=== PATIENT | male | born 1960 | race Caucasian/White ===

== ENCOUNTER 2021-01-28 11:53 | Emergency (ER) | payer OTHER ==
[~2021-01-28] VITALS: Ht 190.5 cm; Wt 100.0 kg
--- NOTE | 2021-01-28 13:17 | ED GI ---
General Chief Complaint: Abdominal/GI Problems Stated Complaint: KIDNEY PAIN, LOWER BACK PAIN, SIDE PAIN Source of Information: Patient Exam Limitations: No Limitations History of Present Illness Date Seen by Provider: Jan 28, 2021 Time Seen by Provider: 13:16 Initial Comments To ER with reports of kidney pain secondary to a calcium oxalate stone. He states he has a history of these and believes he is passing another one. Also has not had a bowel movement in over 8 days. Nausea with poor appetite. Timing/Duration: 1-2 Days Severity/Quality: Cramping Radiation: No Radiation Activities at Onset: None Associated Symptoms: Denies Symptoms Allergies and Home Medications Allergies Coded Allergies: No Known Drug Allergies (Unverified , 01/28/21) Home Medications Docusate Sodium 100 Mg Capsule, 100 MG PO DAILY . Prescribed by: SUSHILA KELLER on 01/28/21 1432 Hydrocodone/Acetaminophen 1 Each Tablet, 1 TAB PO Q4H PRN for PAIN-MODERATE (5- 7) . Prescribed by: SUSHILA KELLER on 01/28/21 1432 Ondansetron 4 Mg Tab.rapdis, 4 MG PO Q6H PRN for NAUSEA/VOMITING . Prescribed by: SUSHILA KELLER on 01/28/21 1432 Polyethylene Glycol 3350 17 Gm Powd.pack, 17 GM PO BID . Prescribed by: SUSHILA KELLER on 01/28/21 1432 Tamsulosin HCl 0.4 Mg Cap, 0.4 MG PO DAILY . Prescribed by: SUSHILA KELLER on 01/28/21 1432 Patient Home Medication List Home Medication List Reviewed: Yes Review of Systems Review of Systems Constitutional: see HPI EENTM: No Symptoms Reported Respiratory: No Symptoms Reported Cardiovascular: No Symptoms Reported Gastrointestinal: See HPI Genitourinary: No Symptoms Reported Musculoskeletal: no symptoms reported Skin: no symptoms reported Psychiatric/Neurological: No Symptoms Reported Endocrine: No Symptoms Reported Hematologic/Lymphatic: No Symptoms Reported Physical Exam Vital Signs Vital Signs - First Documented 01/28/21 12:19 Temp 36.4 Pulse 68 Resp 20 B/P (MAP) 124/84 (97) Pulse Ox 100 O2 Delivery Room Air Capillary Refill : Height/Weight/BMI Height: '" Weight: lbs. oz. kg; BMI Method: General Appearance: WD/WN, no apparent distress HEENT: PERRL/EOMI, normal ENT inspection Respiratory: normal breath sounds, no respiratory distress, no accessory muscle use Cardiovascular: regular rate, rhythm, no murmur Gastrointestinal: normal bowel sounds, non tender, soft Extremities: normal range of motion, non-tender Skin: normal color, warm/dry Progress/Results/Core Measures Results/Orders Lab Results Laboratory Tests Test 01/28/21 12:50 Range/Units White Blood Count 10.9 4.3-11.0 10^3/uL Red Blood Count 5.01 4.30-5.52 10^6/uL Hemoglobin 14.9 13.3-17.7 g/dL Hematocrit 43 40-54 % Mean Corpuscular Volume 85 80-99 fL Mean Corpuscular Hemoglobin 30 25-34 pg Mean Corpuscular Hemoglobin Concent 35 32-36 g/dL Red Cell Distribution Width 12.2 10.0-14.5 % Platelet Count 374 130-400 10^3/uL Mean Platelet Volume 11.2 9.0-12.2 fL Immature Granulocyte % (Auto) 1 % Neutrophils (%) (Auto) 59 42-75 % Lymphocytes (%) (Auto) 27 12-44 % Monocytes (%) (Auto) 10 0-12 % Eosinophils (%) (Auto) 3 0-10 % Basophils (%) (Auto) 1 0-10 % Neutrophils # (Auto) 6.4 1.8-7.8 10^3/uL Lymphocytes # (Auto) 3.0 1.0-4.0 10^3/uL Monocytes # (Auto) 1.1 H 0.0-1.0 10^3/uL Eosinophils # (Auto) 0.3 0.0-0.3 10^3/uL Basophils # (Auto) 0.1 0.0-0.1 10^3/uL Immature Granulocyte # (Auto) 0.1 0.0-0.1 10^3/uL Sodium Level 138 135-145 MMOL/L Potassium Level 4.6 3.6-5.0 MMOL/L Chloride Level 100 98-107 MMOL/L Carbon Dioxide Level 22 21-32 MMOL/L Anion Gap 16 H 5-14 MMOL/L Blood Urea Nitrogen 18 7-18 MG/DL Creatinine 1.69 H 0.60-1.30 MG/DL Estimat Glomerular Filtration Rate 42 BUN/Creatinine Ratio 11 Glucose Level 106 H 70-105 MG/DL Calcium Level 9.5 8.5-10.1 MG/DL Corrected Calcium 9.3 8.5-10.1 MG/DL Total Bilirubin 1.8 H 0.1-1.0 MG/DL Aspartate Amino Transf (AST/SGOT) 14 5-34 U/L Alanine Aminotransferase (ALT/SGPT) 16 0-55 U/L Alkaline Phosphatase 69 40-136 U/L Total Protein 7.9 6.4-8.2 GM/DL Albumin 4.3 3.2-4.5 GM/DL My Orders Orders - SUSHILA KELLER APRN Cbc With Automated Diff (01/28/21 13:01) Comprehensive Metabolic Panel (01/28/21 13:01) Ua Culture If Indicated (01/28/21 13:01) Ed Iv/Invasive Line Start (01/28/21 13:01) Ct Abdomen/Pelvis Wo (01/28/21 13:01) Abo Rh Type (01/28/21 13:13) Lactated Ringers (Lr 1000 Ml Iv Solution (01/28/21 14:15) Abdomen/Kub 1view (01/28/21 14:27) Vital Signs/I&O 01/28/21 12:19 Temp 36.4 Pulse 68 Resp 20 B/P (MAP) 124/84 (97) Pulse Ox 100 O2 Delivery Room Air Departure Communication (Admissions) NAME: [facility] REC#: [id number] PT STATUS: REG ER : 1960 PHYSICIAN: SUSHILA KELLER APRN ADMIT DATE: 01/28/21/ER Draft Date of Exam:01/28/21 CT ABDOMEN/PELVIS WO PROCEDURE: CT abdomen and pelvis without contrast. TECHNIQUE: Multiple contiguous axial images were obtained through the abdomen and pelvis without the use of intravenous contrast. Auto Exposure Controls were utilized during the CT exam to meet ALARA standards for radiation dose reduction. INDICATION: Right flank pain with hematuria Linear densities in the visualized lung bases may reflect atelectasis or scarring. Unenhanced images of the liver and spleen reveal no focal abnormality. There is moderate density within the gallbladder lumen which could be due to sludge or stones. No biliary ductal dilatation is identified. There is no evidence of pancreatic or adrenal gland abnormality. There are bilateral renal stones with the largest in the lower pole of the left kidney measuring 0.6 cm in diameter. In addition, there is mild right hydronephrosis and right hydroureter to the level of an approximately 0.5 cm calculus in the distal right ureter. There is no evidence of appendiceal inflammation. No organized fluid collection is identified and there is no evidence of pathologically enlarged adenopathy. No bladder stone is seen. Calcifications are noted in the prostate gland. There is localized L2-L3 degenerative disc disease. IMPRESSION: Bilateral nephrolithiasis with at least partially obstructing 0.5 cm distal right ureteric stone resulting in mild right hydronephrosis and hydroureter. Dictated on workstation # [id number] Dict: 01/28/21 1336 Trans: 01/28/21 1343 [facility] [id number] Interpreted by: SEBASTIAN CELIS MD Electronically signed by: Impression Primary Impression: Right ureteral stone Disposition: 01 HOME, SELF-CARE Condition: Stable Departure-Patient Inst. Decision time for Depature: 13:48 Referrals: RYNE PADILLA MD Patient Instructions: Kidney Stones (DC) Add. Discharge Instructions: Try to avoid NSAIDs like ibuprofen or naproxen Aleve because of their effect on kidney function. Yes nausea medication as needed. Laxative as directed. Pain medication as directed. Follow-up with urology. Your blood type is B+ All discharge instructions reviewed with patient and/or family. Voiced understanding. Scripts Cefuroxime Axetil (Cefuroxime) 250 Mg Tablet 250 MG PO BID, #10 TAB Prov: SUSHILA KELLER APRN 01/28/21 Polyethylene Glycol 3350 (Miralax) 17 Gm Powd.pack 17 GM PO BID, #20 EACH . Prov: SUSHILA KELLER APRN 01/28/21 Docusate Sodium (Colace) 100 Mg Capsule 100 MG PO DAILY, #20 CAP . Prov: SUSHILA KELLER APRN 01/28/21 Hydrocodone/Acetaminophen (Hydrocodone-Acetamin 5-325 mg) 1 Each Tablet 1 TAB PO Q4H PRN for PAIN-MODERATE (5-7), #14 TAB . Prov: SUSHILA KELLER APRN 01/28/21 Tamsulosin HCl (Flomax) 0.4 Mg Cap 0.4 MG PO DAILY, #14 CAP . Prov: SUSHILA KELLER APRN 01/28/21 Ondansetron (Ondansetron Odt) 4 Mg Tab.rapdis 4 MG PO Q6H PRN for NAUSEA/VOMITING, #8 TAB 0 Refills . Prov: SUSHILA KELLER APRN 01/28/21 SUSHILA KELLER APRN Jan 28, 2021 13:17
--- NOTE | 2021-01-28 13:44 | Diagnostic Imaging Report ---
PROCEDURE: CT abdomen and pelvis without contrast. TECHNIQUE: Multiple contiguous axial images were obtained through the abdomen and pelvis without the use of intravenous contrast. Auto Exposure Controls were utilized during the CT exam to meet ALARA standards for radiation dose reduction. INDICATION: Right flank pain with hematuria Linear densities in the visualized lung bases may reflect atelectasis or scarring. Unenhanced images of the liver and spleen reveal no focal abnormality. There is moderate density within the gallbladder lumen which could be due to sludge or stones. No biliary ductal dilatation is identified. There is no evidence of pancreatic or adrenal gland abnormality. There are bilateral renal stones with the largest in the lower pole of the left kidney measuring 0.6 cm in diameter. In addition, there is mild right hydronephrosis and right hydroureter to the level of an approximately 0.5 cm calculus in the distal right ureter. There is no evidence of appendiceal inflammation. No organized fluid collection is identified and there is no evidence of pathologically enlarged adenopathy. No bladder stone is seen. Calcifications are noted in the prostate gland. There is localized L2-L3 degenerative disc disease. IMPRESSION: Bilateral nephrolithiasis with at least partially obstructing 0.5 cm distal right ureteric stone resulting in mild right hydronephrosis and hydroureter. Dictated by: Dictated on workstation # [id number]
[2021-01-28 13:50] LABS: BASOPHILS # (AUTO) 0.1 10^3/uL (0.0-0.1); BASOPHILS % (AUTO) 1 % (0-10); EOSINOPHILS # (AUTO) 0.3 10^3/uL (0.0-0.3); EOSINOPHILS % (AUTO) 3 % (0-10); HEMATOCRIT 43 % (40-54); HEMOGLOBIN 14.9 g/dL (13.3-17.7); LYMPHOCYTES % (AUTO) 27 % (12-44); MEAN CORPUSCULAR HEMOGLOBIN 30 pg (25-34); MEAN CORPUSCULAR HGB CONC 35 g/dL (32-36); MEAN CORPUSCULAR VOLUME 85 fL (80-99); MEAN PLATELET VOLUME 11.2 fL (9.0-12.2); MONOCYTES # (AUTO) 1.1 10^3/uL (0.0-1.0); MONOCYTES % (AUTO) 10 % (0-12); NEUTROPHILS # (AUTO) 6.4 10^3/uL (1.8-7.8); NEUTROPHILS % (AUTO) 59 % (42-75); PLATELET COUNT 374 10^3/uL (130-400); WHITE BLOOD COUNT 10.9 10^3/uL (4.3-11.0)
[2021-01-28 13:53] LABS: ALBUMIN 4.3 GM/DL (3.2-4.5)
[2021-01-28 13:54] LABS: POTASSIUM 4.6 MMOL/L (3.6-5.0)
[2021-01-28 13:55] LABS: CALCIUM 9.5 MG/DL (8.5-10.1)
[2021-01-28 13:56] LABS: TOTAL PROTEIN 7.9 GM/DL (6.4-8.2)
[2021-01-28 13:58] LABS: BILIRUBIN,TOTAL 1.8 MG/DL (0.1-1.0)
[2021-01-28 14:00] LABS: CREATININE SERUM 1.69 MG/DL (0.60-1.30)
[2021-01-28] MEDS ORDERED: LACTATED RINGERS 1,000 ML IV SCH (14:15)
[2021-01-28] MEDS ORDERED: POLY17PO6 PO ×2 (14:26→14:32)
[2021-01-28] MEDS ORDERED: TMSL.4C PO ×2 (14:26→14:32)
[2021-01-28] MEDS ORDERED: DOCU-143 PO ×2 (14:26→14:32)
[2021-01-28] MEDS ORDERED: ACHD5005 PO ×2 (14:26→14:32)
[2021-01-28] MEDS ORDERED: ONDA4TAB11 PO ×2 (14:26→14:32)
--- NOTE | 2021-01-28 14:45 | Diagnostic Imaging Report ---
INDICATION: Abdominal and back pain of two weeks' duration, history of nephrolithiasis as well as constipation. COMPARISON: Exam interpreted in correlation with abdominopelvic CT of the same date. FINDINGS: A right pelvic calcification just above the level of the acetabulum measures 5.3 mm cephalocaudal and is unchanged when its correlated with earlier CT. A large stone at the level of the left renal lower pole of 5 mm is also unchanged. The punctate 1-2 mm right upper pole renal calculi are barely perceptible and partially obscured by overlying colonic stool. This patient does have at least mildly elevated fecal load throughout the length of the colon, but no findings of rectal impaction and no bowel obstruction. IMPRESSION: 1. 5.3 mm distal right ureteral stone, unchanged in position. Large left lower pole renal calculus, unchanged with punctate stones at the level of the right renal upper pole again noted. 2. Kwong-colonic constipation without focal impaction or obstructive phenomena identified. Dictated by: Dictated on workstation # [id number]
[2021-01-28] MEDS ORDERED: CEFU250T80 PO (15:53)
[2021-01-28 15:56] VITALS: BP 118/70
[2021-01-28 16:00] LABS: BILIRUBIN,URINE NEGATIVE (NEGATIVE); CLARITY,URINE SL CLOUDY; COLOR,URINE DARK YELLOW; GLUCOSE, URINE (UA) NEGATIVE (NEGATIVE); KETONES,URINE 3+ (NEGATIVE); LEUKOCYTE ESTERASE ,URINE TRACE (NEGATIVE); NITRITE,URINE NEGATIVE (NEGATIVE); PROTEIN,URINE TRACE (NEGATIVE)
[2021-01-28 16:07] LABS: BACTERIA,URINE NEGATIVE /HPF; RENAL EPITHELIAL CELLS,URINE 0-2 /HPF
== END 2021-01-28 15:56 | disposition home or self-care (01) ==
LOC: ER 11:58
DX: N13.2 Hydronephrosis with renal and ureteral calculous obstruction (principal); N13.4 Hydroureter
CPT/HCPCS: 36415; 74018; 74176; 80053; 81000; 85025; 86900; 86901

== ENCOUNTER → 2021-02-06 | Outpatient (CLI) | payer OTHER ==
[~2021-02-06] MED LIST: ACHD5005 PO; CEFU250T80 PO; DOCU-143 PO; ONDA4TAB11 PO; POLY17PO6 PO; TMSL.4C PO
--- NOTE | 2021-02-06 14:44 | Diagnostic Imaging Report ---
EXAMINATION: Abdomen, 1 view. HISTORY: HX OF STONES. COMPARISON: 01/28/2021. FINDINGS: There is an unchanged 5 mm calcification projecting over the lower pole of the left kidney. There is an unchanged 5 mm calcification projecting over the distal right ureter. The bowel gas pattern is normal. There is facet arthropathy in the lower lumbar spine. IMPRESSION: Unchanged calcifications projecting over the distal right ureter and lower pole of the left kidney which may represent stones. Dictated by: Dictated on workstation # [id number]
== END ==
LOC: RAD 14:07
PROVIDERS: ATTEND Urology
DX: N28.89 Other specified disorders of kidney and ureter (principal); Z87.442 Personal history of urinary calculi
CPT/HCPCS: 74018

== ENCOUNTER 2021-02-11 05:37 | Outpatient (CLI) | payer OTHER ==
[~2021-02-11] VITALS: Ht 190.5 cm; Wt 92.7 kg
[2021-02-12] MEDS ORDERED: KETO10TA PO (09:33)
[2021-02-12] MEDS ORDERED: SULF1TAB38 PO (09:33)
[2021-02-12] MEDS ORDERED: PHEN-639 PO (09:33)
== END 2021-02-11 10:19 | disposition home or self-care (01) ==
LOC: PREOP 05:37
PROVIDERS: ATTEND Urology
DX: Z01.818 Encounter for other preprocedural examination (principal)

== ENCOUNTER 2021-02-12 06:03 | Day surgery (SDC) | payer OTHER ==
[~2021-02-12] VITALS: Ht 190.5 cm; Wt 92.7 kg
[2021-02-12] VITALS (10 sets, daily range): BP systolic 101–143; BP diastolic 54–94
--- NOTE | 2021-02-12 06:44 | Progress Note-Pre Operative ---
Pre-Operative Progress Note H&P Reviewed The H&P was reviewed, patient examined and no changes noted. Date Seen by Provider: Feb 12, 2021 Time Seen by Provider: 06:44 Date H&P Reviewed: Feb 12, 2021 Time H&P Reviewed: 06:44 Pre-Operative Diagnosis: RT DISTAL URETERAL STONE RYNE PADILLA MD Feb 12, 2021 06:44
[2021-02-12] MEDS ORDERED: LACTATED RINGERS 1,000 ML IV PRN (06:45)
[2021-02-12] MEDS ORDERED: cefTRIAXone 1,000 MG in WATER (STERILE) FOR INJECTION 10 ML IV ONE (06:45)
--- NOTE | 2021-02-12 06:48 | Progress Note-Post Operative ---
Post-Operative Progess Note Surgeon (s)/Big Data Admin (s) Surgeon RYNE PADILLA MD Big Data Admin: NONE Pre-Operative Diagnosis RT DISTAL URETERAL STONE Post-Operative Diagnosis SAME Procedure & Operative Findings Date of Procedure 02/12/21 Procedure Performed/Findings CYSTOSCOPY, RT URETEROSCOPY, AND RT ESWL Anesthesia Type GENERAL Estimated Blood Loss Estimated blood loss (mL): NONE Specimens/Packing Specimens Removed NONE Packing: NONE RYNE PADILLA MD Feb 12, 2021 06:48
--- NOTE | 2021-02-12 06:49 | Discharge Inst-Urology ---
Discharge Inst-Urology Reconcile Patient Problems Problems Reviewed?: Yes Final Diagnosis RT DISTAL URETERAL STONE Patient Instructions/Follow Up Plan/Assessment/Instructions Please make appointment to been seen in office Sunday 02/25, KUB prior to it. KUB on way home Post ESWL instructions Increase oral fluids for 48 hours and then as needed. Diet and Activity as tolerated. If questions or concerns contact your physician Or seek help at emergency department. RYNE PADILLA MD Feb 12, 2021 06:49
[2021-02-12] MEDS ORDERED: ONDANSETRON 4 MG/2 ML (SDV) Z0FRAN ONE (06:58)
[2021-02-12] MEDS ORDERED: fentaNYL INJ 100 MCG/2 ML AMP ONE (06:58)
[2021-02-12] MEDS ORDERED: proPOfol 200 MG/20 ML (DIPRIVAN) VIAL IV ONE ×2 (06:58→07:36)
[2021-02-12] MEDS ORDERED: ROCURONIUM 10 MG/ML 5 ML SYRINGE IV ONE (06:58)
[2021-02-12] MEDS ORDERED: LIDOCAINE PF 2% 5 ML (XYLOCAINE) VIAL ONE (06:58)
[2021-02-12] MEDS ORDERED: MIDAZOLAM 2 MG/2 ML (VERSED) VIAL ONE (06:58)
[2021-02-12] MEDS ORDERED: SEVOFLURANE (ULTANE) 15 ML INHAL SOLN ONE ×3 (06:58→07:44)
[2021-02-12] MEDS ORDERED: cefTRIAXone 1,000 MG VIAL ONE (07:01)
[2021-02-12] MEDS ORDERED: WATER (STERILE) FOR INJECTION 10 ML ONE (07:01)
[2021-02-12] MEDS ORDERED: KETOROLAC 30 MG/ML VIAL ONE (07:28)
[2021-02-12] MEDS ORDERED: FUROSEMIDE 40 MG/4 ML INJ (LASIX) ONE (07:28)
--- NOTE | 2021-02-12 07:47 | Diagnostic Imaging Report ---
EXAMINATION: Supine abdomen at 6:43 AM INDICATION: Ureteral stone The prior exam of 02/06/2021 noted calcifications projected over the inferior pole of the left kidney and low in the pelvis on the right. Those findings are again evident and not significantly changed in position. The CT abdomen/pelvis exam of 01/29/2020 did note that the calculus on the left was intrarenal and that the calculus on the right was in the distal right ureter. The overall appearance of the abdomen and pelvis has not changed significantly otherwise. IMPRESSION: The ureteral calculus low in the pelvis on the right and the nonobstructive calculus in the inferior pole of the left kidney seen previously are again evident and no different. No new abnormality has developed otherwise. Dictated by: Dictated on workstation # [id number]
[2021-02-12] MEDS ORDERED: MEPERIDINE (DEMEROL) INJ 50 MG/ML IVP ONE (08:30)
[2021-02-12] MEDS ORDERED: ONDANSETRON 4 MG/2 ML (SDV) Z0FRAN IVP PRN (08:30)
[2021-02-12] MEDS ORDERED: morphine INJ 10 MG/ML 1ML (SYR OR VIAL) IVP ONE (08:30)
[2021-02-12] MEDS ORDERED: fentaNYL INJ 100 MCG/2 ML AMP IVP ONE (08:30)
[2021-02-12] MEDS ORDERED: PHEN-639 PO (09:33)
[2021-02-12] MEDS ORDERED: KETO10TA PO (09:33)
[2021-02-12] MEDS ORDERED: SULF1TAB38 PO (09:33)
--- NOTE | 2021-02-12 09:59 | Anesthesia-General Post-Op ---
General Patient Condition Mental Status/LOC: Same as Preop Cardiovascular: Satisfactory Nausea/Vomiting: Absent Respiratory: Satisfactory Pain: Controlled Complications: Absent Post Op Complications Complications None Follow Up Care/Instructions Patient Instructions None needed. Anesthesia/Patient Condition Patient Condition Patient is doing well, no complaints, stable vital signs, no apparent adverse anesthesia problems. No complications reported per nursing. DAKOTAH SHARP CRNA Feb 12, 2021 09:59
--- NOTE | 2021-02-12 10:12 | Diagnostic Imaging Report ---
Indication: Nephrolithiasis KUB 6:43 AM There is a calcification projecting over inferior pole of left kidney. There is a calcification in the right side the pelvis near the ureterovesical junction pelvis. Bowel gas pattern is normal. IMPRESSION: Left nephrolithiasis. Right ureterolithiasis. Dictated by: Dictated on workstation # [id number]
--- NOTE | 2021-02-12 10:40 | OPERATIVE REPORT ---
DATE OF SERVICE: 02/12/2021 PREOPERATIVE DIAGNOSIS: Right distal ureteral stone. POSTOPERATIVE DIAGNOSIS: Right distal ureteral stone. OPERATION PERFORMED: Cystoscopy, right ureteroscopy and right ESWL. SURGEON: Naeem Padilla MD ANESTHESIA: General. COMPLICATIONS: None. DESCRIPTION OF PROCEDURE: Under satisfactory general anesthesia, the patient in lithotomy position on the cystoscopy table, genitalia were prepped and draped in the usual sterile fashion. Cystoscope was introduced under vision. The anterior urethra was normal. The prostate was mildly obstructed. Bladder neck was mildly obstructed. Bladder was entered, revealed some trabeculation. Ureteric orifices were normal in shape, size and configuration with clear efflux, sluggish on the right side. Using the foroblique lens, I dilated the right ureteral orifice intramural portion to accommodate a 6.9 Uzbek semi-rigid ureteroscope. I went up, but could not manipulate a curve of the ureter to get to the level of the stone as seen by fluoroscopy. I discontinued further attempt, removed the ureteroscope, reinserted the cystoscope, emptied the bladder, moved the patient to the ESWL bed, the stone was localized. Shocks were delivered at gradually increasing the kV to 11, 3500 shocks were delivered and it looks like the stone was fragmenting well. The patient received 40 mg of Lasix and 30 mg of Toradol IV at the end of the procedure. He tolerated the procedure and anesthesia well and was sent to recovery room in stable condition. Job ID: [id number] DocumentID: [id number] Dictated Date: 02/12/2021 08:18:59 Installment Dealer Date: 02/12/2021 10:39:54 Dictated By: NAEEM PADILLA MD
== END 2021-02-12 10:25 | disposition home or self-care (01) ==
LOC: SDC 06:03
PROVIDERS: ATTEND Urology
DX: N20.1 Calculus of ureter (principal)
CPT/HCPCS: 74018; 76000; 87081

== ENCOUNTER → 2021-02-22 | Outpatient (CLI) | payer OTHER ==
[~2021-02-22] MED LIST changes: +KETO10TA PO; +PHEN-639 PO; +SULF1TAB38 PO
--- NOTE | 2021-02-22 10:36 | Diagnostic Imaging Report ---
EXAMINATION: Supine abdomen at 1011 AM INDICATION: Right ureteral stone Two supine views were obtained. The prior exam of 02/12/2021 noted calcification near the ureterovesical junction on the right as well as another calcification overlying the inferior pole of the left kidney. Those findings are again evident on this study and do not seem to have changed significantly. If anything, the calculus on the right may have migrated distally slightly. No other abnormality is identified. IMPRESSION: 1. The calculus overlying the left kidney and the calculus low in the pelvis on the right seen previously are again evident and not significantly changed. 2. No new abnormality has developed otherwise. Dictated by: Dictated on workstation # [id number]
== END ==
LOC: RAD 09:27
PROVIDERS: ATTEND Urology
DX: N20.2 Calculus of kidney with calculus of ureter (principal)
CPT/HCPCS: 74018

== ENCOUNTER → 2021-03-12 | Outpatient (CLI) | payer OTHER ==
--- NOTE | 2021-03-12 16:11 | Diagnostic Imaging Report ---
INDICATION: Right renal stones. TIME OF EXAM: 1:25 PM CORRELATION is made with prior radiograph from 02/22/2021. A calcific density overlying the lower pole of the left kidney is unchanged. The calcification in the low right pelvis is also unchanged. No other urinary tract calculi are seen. Bowel gas pattern is unremarkable. IMPRESSION: Stable KUB since examination from 02/22/2021. Dictated by: Dictated on workstation # [id number]
== END ==
LOC: RAD 13:03
PROVIDERS: ATTEND Urology
DX: N20.2 Calculus of kidney with calculus of ureter (principal)
CPT/HCPCS: 74018